=== PATIENT | male | born 1990 | race Two or more races ===

== ENCOUNTER 2017-07-12 15:38 | Emergency (ER) | payer BC, MEDICAID, MEDICARE ==
[~2017-07-12] VITALS: Ht 188 cm; Wt 69.8 kg
[~2017-07-12 15:38] MED LIST: LITH150C PO
[2017-07-12 15:45] VITALS: BP 127/85
[2017-07-12 16:16] LABS: HEMATOCRIT 48.5 % (39.2-51.8); WHITE BLOOD COUNT 7.9 x10^3/uL (3.4-10)
[2017-07-12 16:25] LABS: BLOOD UREA NITROGEN 10 mg/dL (7-18)
[2017-07-12 16:29] LABS: ASPARTATE AMINO TRANSFERASE 26 U/L (15-37)
== END 2017-07-12 17:49 | disposition home or self-care (01) ==
LOC: ED 17:40
DX: K92.2 Gastrointestinal hemorrhage, unspecified (principal)
CPT/HCPCS: 36415; 80053; 85025; 99284

== ENCOUNTER 2018-01-31 08:19 | Emergency (ER) | payer MEDICARE ==
[~2018-01-31] VITALS: Ht 188 cm; Wt 73.4 kg
[2018-01-31 08:21] VITALS: BP 132/90
== END 2018-01-31 10:16 | disposition home or self-care (01) ==
LOC: ED 10:05
DX: J20.9 Acute bronchitis, unspecified (principal)
CPT/HCPCS: 71046; 99284